=== PATIENT | female | born 1945 | race Caucasian/White ===

== ENCOUNTER 2019-06-23 15:32 | Emergency (ER) | payer BC ==
--- NOTE | 2019-06-23 16:43 | EDM.PDOC ---
ED HPI GENERAL MEDICAL PROBLEM - General Source of Information: Reports: Patient History Limitations: Reports: No Limitations <Kiara Richmond - Last Filed: 06/23/19 17:01> <Jonnie Garcia - Last Filed: 06/23/19 19:01> - General Chief Complaint: Head Injury Stated Complaint: SYNCOPE LAST NIGHT, HEAD INJURY Time Seen by Provider: 06/23/19 16:25 - History of Present Illness INITIAL COMMENTS - FREE TEXT/NARRATIVE: 73 year old female who presents to the ED with complaints of a syncopal episode. Pt states that at about 0300 this morning, she got up to go to the bathroom. Initially upon standing next to the bed she says she felt dizzy and sat back down on the bed until the dizziness resolved. She then ambulated to the bathroom and passed out and doesn't remember anything. Pt's heard her fall and immediately got up to find her unresponsive on the floor in the bathroom. He said she was unconscious for about 1 minute but he shook her and she was arousable. She then got up and voided and ambulated back to the bed without difficulty. States that she has a headache on the right side of her forehead and the left occipital area. Denies chest pains or palpitations or shortness of breath prior to syncopal episode. 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: Musculoskeletal History: Reports: None Psychiatric History: Reports: None Endocrine/Metabolic History: Reports: Diabetes, Type II Hematologic History: Reports: None Immunologic History: Reports: None Oncologic (Cancer) History: Reports: None Dermatologic History: Reports: None - Infectious Disease History Infectious Disease History: Reports: None - Past Surgical History Head Surgeries/Procedures: Reports: None HEENT Surgical History: Reports: Tonsillectomy Neurological Surgical History: Reports: Lumbar Spine <Kiara Richmond - Last Filed: 06/23/19 17:01> Social & Family History - Tobacco Use Smoking Status *Q: Never Smoker - Caffeine Use Caffeine Use: Reports: Soda - Recreational Drug Use Recreational Drug Use: No <Kiara Richmond Last Filed: 06/23/19 17:01> ED ROS GENERAL - Review of Systems Review Of Systems: ROS reveals no pertinent complaints other than HPI. Constitutional: Reports: No Symptoms HEENT: Reports: No Symptoms Respiratory: Reports: No Symptoms Cardiovascular: Reports: Syncope. Denies: Chest Pain, Blood Pressure Problem, Dyspnea on Exertion, Edema, Palpitations Endocrine: Reports: No Symptoms GI/Abdominal: Reports: No Symptoms : Reports: No Symptoms Musculoskeletal: Reports: No Symptoms Skin: Reports: No Symptoms Neurological: Reports: Headache, Syncope. Denies: Confusion, Numbness, Tingling , Trouble Speaking, Difficulty Walking, Change in Speech, Gait Disturbance Psychiatric: Reports: No Symptoms Hematologic/Lymphatic: Reports: No Symptoms Immunologic: Reports: No Symptoms <Kiara Richmond - Last Filed: 06/23/19 17:01> ED EXAM, HEAD INJURY - Physical Exam Exam: See Below Exam Limited By: No Limitations General Appearance: Alert, WD/WN, No Apparent Distress Head: Normocephalic, Scalp Tenderness (left occipital/parietal area), Facial Ecchymosis (right forehead ), Facial Swelling, Facial Tenderness Nexus Criteria: No: Posterior, Midline Cervical Tenderness, Evidence of Intoxication, Altered Level of Consciousness, Focal Neurological Deficit, Painful Distraction Injuries Eyes: Bilateral Eye: PERRL Ears: Normal External Exam, Hearing Grossly Normal Nose: Normal Inspection Throat/Mouth: Normal Inspection, Normal Lips, Normal Teeth, Normal Voice, No Airway Compromise Neck: Non-Tender, Full Range of Motion, Normal Inspection Respiratory: No Respiratory Distress, Lungs Clear, Normal Breath Sounds, No Accessory Muscle Use, Chest Non-Tender Cardiovascular: Normal Peripheral Pulses, Regular Rate, Rhythm, No Edema, No Murmur GI/Abdominal Exam: Normal Bowel Sounds, Soft, Non-Tender, No Organomegaly, No Distention (Female) Exam: Deferred Rectal (Female) Exam: Deferred Back Exam: Normal Inspection, Full Range of Motion Extremities: Normal Inspection, Normal Range of Motion, Non-Tender, No Pedal Edema, Normal Capillary Refill Neurologic: No Motor/Sensory Deficits, Alert, Normal Mood/Affect, Oriented x 3 Skin: Normal Color, Warm/Dry - [place]o Coma Score Best Eye Response ([place]): (4) Open Spontaneously Best Verbal Response ([place]): (5) Oriented Best Motor Response ([place]): (6) Obeys Commands [place] Total: 15 <Kiara Richmond - Last Filed: 06/23/19 17:01> EKG INTERPRETATION <Kiara Richmond - Last Filed: 06/23/19 17:01> EKG Date: 06/23/19 Rhythm: NSR [place]: Normal P-Wave: Present QRS: Normal ST-T: Normal QT: Normal Comparison: NA - No Prior EKG <Jonnie Garcia - Last Filed: 06/23/19 19:01> EKG Interpretation Comments: Fairly normal EKG (Jonnie Garcia) Course <Kiara Richmond - Last Filed: 06/23/19 17:01> <Jonnie Garcia - Last Filed: 06/23/19 19:01> - Vital Signs Last Recorded V/S: Last Vital Signs Temp 36.4 C 06/23/19 15:51 Pulse 71 06/23/19 15:51 Resp 16 06/23/19 15:51 BP 144/63 H 06/23/19 15:51 Pulse Ox 100 06/23/19 15:51 - Orders/Labs/Meds Orders: Active Orders 24 hr Category Date Time Status EKG Documentation Completion [RC] STAT Care 06/23/19 16:39 Active Peripheral IV Care [RC] . DIRECTED Care 06/23/19 16:44 Active Sodium Chloride 0.9% [Saline Flush] Med 06/23/19 16:44 Active 10 ml FLUSH ASDIRECTED PRN Peripheral IV Insertion Adult [OM.PC] Routine Oth 06/23/19 16:44 Ordered Medication Orders Sodium Chloride (Saline Flush) 10 ml FLUSH ASDIRECTED PRN PRN Reason: Keep Vein Open Labs: Laboratory Tests 06/23/19 06/23/19 06/23/19 Range/Units 16:50 16:50 16:50 WBC 8.77 (3.98-10.04) K/mm3 RBC 4.58 (3.98-5.22) M/mm3 Hgb 11.5 (11.2-15.7) gm/dl Hct 36.3 (34.1-44.9) % MCV 79.3 L (79.4-94.8) fl MCH 25.1 L (25.6-32.2) pg MCHC 31.7 L (32.2-35.5) g/dl RDW Std Deviation 47.2 H (36.4-46.3) fL Plt Count 288 (182-369) K/mm3 MPV 8.9 L (9.4-12.3) fl Neut % (Auto) 57.2 (34.0-71.1) % Lymph % (Auto) 32.6 (19.3-51.7) % [place] % (Auto) 9.0 (4.7-12.5) % Eos % (Auto) 0.9 (0.7-5.8) Baso % (Auto) 0.2 (0.1-1.2) % Neut # (Auto) 5.01 (1.56-6.13) K/mm3 Lymph # (Auto) 2.86 (1.18-3.74) K/mm3 [place] # (Auto) 0.79 H (0.24-0.36) K/mm3 Eos # (Auto) 0.08 (0.04-0.36) K/mm3 Baso # (Auto) 0.02 (0.01-0.08) K/mm3 Sodium 144 (136-145) mEq/L Potassium 4.4 (3.5-5.1) mEq/L Chloride 105 (98-107) mEq/L Carbon Dioxide 30 (21-32) mEq/L Anion Gap 13.4 (5-15) BUN 21 H (7-18) mg/dL Creatinine 0.8 (0.55-1.02) mg/dL Est Cr Clr Drug Dosing 47.26 mL/min Estimated GFR (MDRD) > 60 (>60) mL/min BUN/Creatinine Ratio 26.3 H (14-18) Glucose 86 (83-115) mg/dL Calcium 9.9 (8.5-10.1) mg/dL Total Bilirubin 0.5 (0.2-1.0) mg/dL AST 23 (15-37) U/L ALT 27 (14-59) U/L Alkaline Phosphatase 56 (46-116) U/L Troponin I < 0.017 (0.00-0.056) ng/mL Total Protein 7.1 (6.4-8.2) g/dl Albumin 3.7 (3.4-5.0) g/dl Globulin 3.4 gm/dL Albumin/Globulin Ratio 1.1 (1-2) Meds: Medications Generic Name Dose Route Start Last Admin Trade Name Mat PRN Reason Stop Dose Admin Sodium Chloride 10 ml 06/23/19 16:44 Saline Flush FLUSH ASDIRECTED PRN Keep Vein Open - Re-Assessments/Exams Free Text/Narrative Re-Assessment/Exam: 06/23/19 18:[address] unremarkable for acute changes she has a prominent basal ganglial calcification thought to be related to trauma as it is only on one side and age-related changes. We will check a 48 hour Holter monitor. (Jonnie Garcia) Departure <Kiara Richmond - Last Filed: 06/23/19 17:01> - Departure Time of Disposition: 18:51 <Jonnie Garcia - Last Filed: 06/23/19 19:01> - Departure Disposition: Home, Self-Care 01 Clinical Impression: Episode of syncope - Discharge Information Referrals: PCP,Unknown [Ordering Only Provider] - Forms: ED Department Discharge Additional Instructions: Return to emergency room if any questions problems or worsening symptoms.. Get a 48 hour Holter done and return as directed follow-up with Dr. Tejeda the middle of next week for the results of this and further evaluation and treatment. Use caution when getting up and changing positions. No driving until this is all figured out.
[2019-06-23] MEDS ORDERED: Sodium Chloride 0.9% 10 ML Syringe FLUSH PRN (16:44)
--- NOTE | 2019-06-23 17:25 | CT ---
Head CT Technique: Multiple axial sections through the brain were obtained. Intravenous contrast was not utilized. Comparison: No previous intracranial imaging is available. Findings: Prominent basal ganglia calcification is seen on the right side. No other abnormal intracranial calcifications are seen. Mild areas of diminished density are noted within the periventricular white matter which is compatible with small vessel ischemic demyelination change. Ventricles along with basal cisterns and sulci over the convexities are mildly prominent. No other abnormal parenchymal densities are seen. No evidence of intracranial hemorrhage. No midline shift or mass effect is seen. Bone window settings were reviewed which shows the visualized sinuses to appear clear. No acute calvarial abnormality is seen. Impression: 1. Prominent basal ganglia calcification on the right side. Since this is unilateral this is most likely due to previous trauma. This does not appear to be metabolic as this is not seen symmetrically on both sides. This is most likely chronic and of no acute significance. 2. Mild senescent change as noted above. 3. No acute intracranial abnormality is appreciated. Diagnostic code #2
== END 2019-06-23 19:14 | disposition home or self-care (01) ==
LOC: JD.ED 15:32
DX: R55 Syncope and collapse (principal); S00.83XA Contusion of other part of head, initial encounter; I10 Essential (primary) hypertension; E11.9 Type 2 diabetes mellitus without complications; Z79.84 Long term (current) use of oral hypoglycemic drugs; W01.198A Fall on same level from slipping, tripping and stumbling with subsequent striking against other object, initial encounter; Y92.091 Bathroom in other non-institutional residence as the place of occurrence of the external cause
CPT/HCPCS: 36415; 70450; 70450-26; 80053; 84484; 85025; 93005; 93225; 93226; 99284-25